=== PATIENT | male | born 1990 | race African-American/Black ===

== ENCOUNTER 2019-10-22 19:30 | Emergency (ER) | payer MEDICAID ==
[~2019-10-22] VITALS: Ht 182.9 cm; Wt 83.0 kg
[2019-10-22 19:40] VITALS: BP 130/80
== END 2019-10-22 22:26 | disposition home or self-care (01) ==
LOC: ER 19:30
DX: S89.92XA Unspecified injury of left lower leg, initial encounter (principal); S99.912A Unspecified injury of left ankle, initial encounter; V29.40XA Motorcycle driver injured in collision with unspecified motor vehicles in traffic accident, initial encounter; Y93.89 Activity, other specified; Y92.488 Other paved roadways as the place of occurrence of the external cause
CPT/HCPCS: 99283